=== PATIENT | female | born 1975 | race Caucasian/White ===

== ENCOUNTER → 2022-05-25 | Outpatient (CLI) | payer BC ==
[~2022-05-25] MED LIST: ALPR.25 PO; AMOCLA500 PO; HYDACE5 PO; IBUP800; PARO20 PO; PENVK500 PO
== END ==
LOC: LAB 12:05 → LAB SHORT 12:05
DX: S80.811A Abrasion, right lower leg, initial encounter (principal)
CPT/HCPCS: 87070; 87077; 87205